=== PATIENT | female | born 1980 | race Caucasian/White ===

== ENCOUNTER 2017-07-25 18:24 | Emergency (ER) | payer SELFPAY ==
[~2017-07-25 18:24] MED LIST: ISOVUE-370 76%-LOCM 1 ML ONE
[2017-07-25] MEDS ORDERED: Meclizine HCl 25 MG TAB ONE (18:59)
[2017-07-25 19:11] LABS: #Eosinphils 0.2 thou/uL (0.0-0.7); #Lymphocytes 1.7 thou/uL (1.20-3.40); #Monocytes 0.5 thou/uL (0.11-0.59); #Neutrophils 3.7 thou/uL (1.40-6.50); %Eosinophils 3.5 % (0.0-10.0); %Lymphocytes 27.7 % (21.0-51.0); %Monocytes 7.5 % (0.0-10.0); %Neutrophils 61.3 % (42.0-75.0); Hemoglobin 13.1 g/dL (12.0-16.0); Mean Corpuscular HGB CONC 33.7 g/dL (32.0-36.0); Mean Corpuscular Hemoglobin 31.5 pg (27.0-31.0); Mean Corpuscular Volume 93.6 fl (81.0-99.0); Mean Platelet Volume 6.9 fL (7.4-10.4); Platelet Count 244 thou/uL (130-400); RBC Distribution Width 12.2 % (11.5-14.5); Red Blood Cell (RBC) Count 4.15 mill/uL (4.20-5.40); White Blood Cell (WBC) Count 6.1 thou/uL (4.8-10.8)
[2017-07-25 19:29] LABS: ALT (SGPT) 20 U/L (8-55); AST (SGOT) 14 U/L (5-34); Albumin 4.4 g/dL (3.5-5.0); Alkaline Phosphatase 85 U/L (40-150); Anion Gap 10 mmol/L (10-20); BUN (Urea Nitrogen) 11 mg/dL (7.0-18.7); Bilirubin, Total 0.5 mg/dL (0.2-1.2); CK (CPK) 63 U/L (29-168); Calc. Creatinine Clearance 0 mL/min (70-130); Calcium 9.8 mg/dL (7.8-10.44); Carbon Dioxide 27 mmol/L (22-29); Chloride 102 mmol/L (98-107); Estimated GFR-MDRD 89; Glucose 95 mg/dL (70-105); Potassium 3.8 mmol/L (3.5-5.1); Protein, Total 7.4 g/dL (6.0-8.3); Sodium 135 mmol/L (136-145)
[2017-07-25] MEDS ORDERED: Lorazepam 2 MG/ML VIAL ONE (19:48)
[2017-07-25] MEDS ORDERED: Ondansetron ODT 4 MG TAB ONE ×2 (19:49→19:50)
[2017-07-25] MEDS ORDERED: Dexamethasone 4 mg/ml Vial ONE (19:49)
--- NOTE | 2017-07-25 22:05 | CT ---
CTA NECK WITH 3D VOLUME RENDERING 07/25/17 CLINICAL HISTORY: Altered mental status with symptoms of vertigo and neck pain. Clinical concern for vertebral artery d issection. FINDINGS: Imaged aortic arch is patent as are the great vessel origins that emanate from the aortic arch. Limit ed visualization of the right subclavian artery for comment. The imaged left subclavian artery is sandip ssly patent. There is beam attenuation from patient body habitus which does limit sensitivity of the evaluation. The imaged bilateral vertebral arteries reveal no discrete evidence for focal dissection or flow limiting stenosis. Each vertebral artery is small in caliber diffusely, and there is suggestion of partial termination o f each vertebral artery within PICA with resultant small caliber distally and a small caliber basilar artery which is partially imaged on the basis of this exam. There is no obvious high grade focal carter nosis or occlusion or either common carotid artery. Bilateral cervical internal carotid arteries are patent. intracranial aspect of each carotid artery reveals no significant stenosis. Incidental note of cervical spondylosis. IMPRESSION: 1. No acute dissection of the vertebral arteries. 2. Additional details are described above. POS: BESSY
== END 2017-07-25 21:35 | disposition home or self-care (01) ==
LOC: ERS 18:24
DX: M54.2 Cervicalgia (principal); R42 Dizziness and giddiness; F90.9 Attention-deficit hyperactivity disorder, unspecified type; Z87.891 Personal history of nicotine dependence
CPT/HCPCS: 36415; 70498; 80053; 82550; 85025; 93005; 96361; 96374; 96375; J1100; J2060; Q0162

== ENCOUNTER 2022-08-28 21:02 | Inpatient (IN) | payer MEDICARE, MEDICAID ==
[2022-08-28] MEDS ORDERED: Ondansetron ODT 4 MG TAB PO PRN (23:31)
[2022-08-28] MEDS ORDERED: Ondansetron PF 4 MG/2 ML Vial IVP PRN (23:31)
[2022-08-28] MEDS ORDERED: Ketorolac Tromethamine 30 MG/ML VIAL IVP SCH (23:45)
[2022-08-28 23:51] VITALS: BMI 37.9
[2022-08-28] MEDS ORDERED: VANCOMYCIN 2 GRAM/500 ML BAG 2 GM in Premix Bag 1 BAG IVPB SCH (23:59)
[2022-08-29] MEDS: HYDROcodone/Acetaminophen 5/325 mg Tablet PO PRN ×2 (00:12→04:04)
[2022-08-29] MEDS: Piperacillin/Tazobactam 3.375 GM in Sodium Chloride 0.9% 100 ML IVPB SCH ×3 (00:13→17:32)
[2022-08-29] MEDS ORDERED: TETANUS, DIPHTHERIA TOX,ADULT (TDVAX) 0.5 ML VIAL IM ONE (00:30)
[2022-08-29] MEDS: Morphine 2 MG/ML VIAL SLOW IVP PRN ×2 (01:43→06:09)
[2022-08-29] MEDS: Ketorolac Tromethamine 30 MG/ML VIAL IVP SCH ×4 (06:09→23:16)
[2022-08-29] MEDS ORDERED: diphenhydrAMINE 50 MG/ML VIAL IVP SCH (06:30)
[2022-08-29] MEDS ORDERED: Famotidine/PF 20 mg/2ml Vial SLOW IVP SCH ×2 (06:30→12:15)
[2022-08-29 06:56] LABS: #Eosinphils 0.1 thou/uL (0.0-0.7); #Monocytes 0.8 thou/uL (0.11-0.59); %Basophils 0.3 % (0.0-1.0); %Eosinophils 1.8 % (0.0-10.0); %Lymphocytes 22.4 % (21.0-51.0); %Monocytes 9.8 % (0.0-10.0); %Neutrophils 65.6 % (42.0-75.0); Hemoglobin 10.9 g/dL (12.0-16.0); Mean Corpuscular HGB CONC 32.2 g/dL (32.0-36.0); Mean Corpuscular Hemoglobin 30.6 pg (27.0-31.0); Mean Corpuscular Volume 95.2 fl (78.0-98.0); Mean Platelet Volume 9.7 fL (7.4-10.4); Platelet Count 216 10x3/uL (130-400); RBC Distribution Width 13.2 % (11.5-14.5); Red Blood Cell (RBC) Count 3.56 mill/uL (4.20-5.40); White Blood Cell (WBC) Count 7.7 10x3/uL (4.8-10.8)
[2022-08-29 07:25] LABS: Anion Gap 10 mmol/L (10-20); BUN (Urea Nitrogen) 16 mg/dL (7.0-18.7); Calc. Creatinine Clearance 154 mL/min (70-130); Calcium 8.7 mg/dL (7.8-10.44); Carbon Dioxide 24 mmol/L (22-29); Chloride 106 mmol/L (98-107); Estimated GFR 98; Glucose 88 mg/dL (70-105); Potassium 4.1 mmol/L (3.5-5.1); Sodium 136 mmol/L (136-145)
[2022-08-29] MEDS ORDERED: Vancomycin 1 GM in Premix Bag 1 BAG IVPB SCH (09:00)
[2022-08-29] MEDS ORDERED: Fentanyl 100 MCG/2 ML VIAL SLOW IVP SCH (12:15)
[2022-08-29] MEDS: Vancomycin 1.5 GRAM/300 ML BAG 1.5 GM in Premix Bag 1 BAG IVPB SCH ×2 (13:03→23:22)
[2022-08-29] MEDS: Acetaminophen 500 MG TAB PO PRN ×2 (13:06→17:43)
[2022-08-29] MEDS ORDERED: Midazolam HCl 2 mg/2 ml Vial ONE (21:30)
[2022-08-29] MEDS ORDERED: fentaNYL PF 100 MCG/2 ML SYRINGE ONE (21:30)
[2022-08-29] MEDS ORDERED: Bacitracin Zinc Ointment 30 gm TUBE ONE (22:01)
[2022-08-29] MEDS ORDERED: Bupivacaine PF 0.5% 30 ML VIAL ONE (22:01)
[2022-08-29] MEDS ORDERED: Vancomycin 1 GM VIAL ONE (22:01)
[2022-08-30] MEDS: Piperacillin/Tazobactam 3.375 GM in Sodium Chloride 0.9% 100 ML IVPB SCH ×2 (02:04→09:26)
[2022-08-30] MEDS: Ketorolac Tromethamine 30 MG/ML VIAL IVP SCH ×2 (05:03→12:02)
[2022-08-30] MEDS ORDERED: Fentanyl 250 MCG/5 ML VIAL ONE (06:34)
[2022-08-30] MEDS ORDERED: Bupivacaine PF 0.5% 30 ML VIAL ONE (06:36)
[2022-08-30] MEDS ORDERED: Thrombin 5000 UNITS/5 ML VIAL ONE (06:36)
[2022-08-30] MEDS ORDERED: Bacitracin Zinc Ointment 30 gm TUBE ONE (06:36)
[2022-08-30] MEDS ORDERED: PHENYLEPHRINE-NS 100 MCG/ML 10 ML SYRINGE ONE (07:06)
[2022-08-30] MEDS ORDERED: Lidocaine 1% PF 5 ML VIAL ONE (07:06)
[2022-08-30] MEDS ORDERED: GLYCOPYRROLATE/PF 0.2 MG/ML VIAL ONE (07:06)
[2022-08-30] MEDS ORDERED: PROPOFOL 200 MG/20 ML VIAL ONE (07:06)
[2022-08-30] MEDS ORDERED: Ondansetron PF 4 MG/2 ML Vial ONE (07:06)
[2022-08-30] MEDS ORDERED: Dexamethasone 20 MG/5 ML VIAL ONE (07:06)
[2022-08-30] MEDS ORDERED: Ketorolac Tromethamine 30 MG/ML VIAL ONE (07:06)
[2022-08-30] MEDS ORDERED: Vancomycin 1 GM VIAL ONE (07:25)
[2022-08-30] MEDS ORDERED: Ondansetron HCl/PF 4 MG/2 ML Vial IVP PRN (08:29)
[2022-08-30] MEDS ORDERED: Promethazine HCl 25 MG/ML VIAL IM PRN (08:29)
[2022-08-30] MEDS: HYDROcodone/Acetaminophen 5/325 mg Tablet PO PRN (09:55)
[2022-08-30 11:18] LABS: #Monocytes 0.2 thou/uL (0.11-0.59); #Neutrophils 5.2 thou/uL (1.40-6.50); %Basophils 0.2 % (0.0-1.0); %Eosinophils 0.6 % (0.0-10.0); %Lymphocytes 12.2 % (21.0-51.0); %Monocytes 3.6 % (0.0-10.0); %Neutrophils 83.1 % (42.0-75.0); Hemoglobin 10.8 g/dL (12.0-16.0); Mean Corpuscular HGB CONC 32.4 g/dL (32.0-36.0); Mean Corpuscular Hemoglobin 30.4 pg (27.0-31.0); Mean Corpuscular Volume 93.8 fl (78.0-98.0); Mean Platelet Volume 9.4 fL (7.4-10.4); Platelet Count 217 10x3/uL (130-400); RBC Distribution Width 13.2 % (11.5-14.5); Red Blood Cell (RBC) Count 3.55 mill/uL (4.20-5.40); White Blood Cell (WBC) Count 6.3 10x3/uL (4.8-10.8)
[2022-08-30 11:41] LABS: Vancomycin, Trough 13.3 ug/mL
[2022-08-30 11:43] LABS: Anion Gap 10 mmol/L (10-20); BUN (Urea Nitrogen) 11 mg/dL (7.0-18.7); Calc. Creatinine Clearance 167 mL/min (70-130); Calcium 9.5 mg/dL (7.8-10.44); Carbon Dioxide 25 mmol/L (22-29); Chloride 104 mmol/L (98-107); Estimated GFR 108; Glucose 118 mg/dL (70-105); Potassium 4.3 mmol/L (3.5-5.1); Sodium 135 mmol/L (136-145)
[2022-08-30] MEDS: Vancomycin 1.5 GRAM/300 ML BAG 1.5 GM in Premix Bag 1 BAG IVPB SCH (12:51)
[2022-08-30] MEDS ORDERED: Non-Formulary Item 1 EACH (Desvenlafaxine [Desvenlafaxine Er] 50 MG Tab.Er.24h) PO SCH (13:30)
[2022-08-30] MEDS ORDERED: buPROPion HCl 100 MG TAB PO SCH ×2 (13:30→13:45)
[2022-08-30] MEDS ORDERED: Venlafaxine HCl XR 75 MG CAP PO SCH (13:45)
[2022-08-30 16:30] VITALS: BP 127/78; TEMP 98.5
[2022-08-30] MEDS ORDERED: metFORMIN 500 MG TAB PO SCH (21:00)
[2022-08-31] MEDS ORDERED: buPROPion HCl 100 MG TAB PO SCH (09:00)
[2022-08-31] MEDS ORDERED: Venlafaxine HCl XR 75 MG CAP PO SCH (09:00)
== END 2022-08-30 16:45 | disposition home or self-care (01) | DRG 42 ==
LOC: T4-A 22:25
PROVIDERS: ADMIT Internal Medicine; ATTEND Internal Medicine
PROC: 01Q60ZZ Repair Radial Nerve, Open Approach (ICD-10-PCS; principal; 2022-08-30)
PROC: 0LB70ZZ Excision of Right Hand Tendon, Open Approach (ICD-10-PCS; 2022-08-30)
DX: S64.21XA Injury of radial nerve at wrist and hand level of right arm, initial encounter (principal); M65.841 Other synovitis and tenosynovitis, right hand; R73.03 Prediabetes; S61.214A Laceration without foreign body of right ring finger without damage to nail, initial encounter; X58.XXXA Exposure to other specified factors, initial encounter; L50.9 Urticaria, unspecified; Z88.5 Allergy status to narcotic agent; Z79.899 Other long term (current) drug therapy
CPT/HCPCS: 12002; 36415; 80048; 80053; 80202; 83605; 85025; 87040; 87070; 87205; 90714; 96365; 96375; J1100; J1200; J1885; J2250; J2270; J2272; J2405; J2543; J2704; J3010; J3370; J3490; S0020; S0028

== ENCOUNTER 2024-11-26 13:08 | Outpatient (CLI) | payer MEDICARE | END 2024-11-26 13:09 | disposition home or self-care (01) | LOC: SCSMRI 13:08 | PROVIDERS: ATTEND Student in an Organized Health Care Education/Training Program | DX: S46.011A Strain of muscle(s) and tendon(s) of the rotator cuff of right shoulder, initial encounter (principal); M75.121 Complete rotator cuff tear or rupture of right shoulder, not specified as traumatic; M25.411 Effusion, right shoulder; M19.011 Primary osteoarthritis, right shoulder ==

== ENCOUNTER 2024-12-04 09:32 | Outpatient (CLI) | payer MEDICARE ==
[2024-12-04 10:31] LABS: BHCG - Serum Negative (NEGATIVE); Pregs Control Background? CLEAR/WHITE (CLR/WHITE); Pregs Control Bar Appear? YES (CONTROL BAR)
[2024-12-04 10:46] LABS: INR-International Normal Ratio 1.0; Prothrombin Time 13.5 sec (12.0-14.7)
== END 2024-12-04 09:33 | disposition home or self-care (01) ==
LOC: LABBT 09:32
PROVIDERS: ATTEND Student in an Organized Health Care Education/Training Program
DX: Z01.818 Encounter for other preprocedural examination (principal); S46.011A Strain of muscle(s) and tendon(s) of the rotator cuff of right shoulder, initial encounter; M25.511 Pain in right shoulder
CPT/HCPCS: 71046; 84703; 85610; 86850; 86900; 86901

== ENCOUNTER 2024-12-11 05:56 | Day surgery (SDC) | payer MEDICARE ==
[2024-12-04 09:51] VITALS: BMI 37.8
[2024-12-11] MEDS ORDERED: Tranexamic Acid 1,000 MG/10 ML VIAL ONE (06:17)
[2024-12-11] MEDS ORDERED: Acetaminophen 500 MG TAB ONE (06:17)
[2024-12-11] MEDS ORDERED: Bupivacaine 0.25% HCL 30 ML VIAL ONE (06:28)
[2024-12-11] MEDS ORDERED: Ropivacaine 0.5% HCl/PF (150 MG/30 ML VIAL) ONE (06:55)
[2024-12-11] MEDS ORDERED: Ropivacaine 0.2% HCl/PF 20 ML ONE (06:55)
[2024-12-11] MEDS ORDERED: CEFAZOLIN 2 GM VIAL ONE (07:04)
[2024-12-11] MEDS ORDERED: fentaNYL PF 100 MCG/2 ML SYRINGE ONE (07:31)
[2024-12-11] MEDS ORDERED: PROPOFOL 40 ML ONE (07:31)
[2024-12-11] MEDS ORDERED: Rocuronium Bromide 10 MG/ML (10ML VIAL) ONE (07:38)
[2024-12-11] MEDS ORDERED: Ropivacaine 0.2% 550 ML 550 ML NERVE BLCK SCH (08:00)
[2024-12-11] MEDS ORDERED: Ondansetron PF 4 MG/2 ML Vial IVP PRN (08:00)
[2024-12-11] MEDS ORDERED: SUGAMMADEX SODIUM 200 MG/2 ML VIAL ONE ×2 (10:20→12:33)
[2024-12-11] MEDS ORDERED: Ketorolac Tromethamine 30 MG (1 mL) VIAL ONE (10:20)
[2024-12-11] MEDS ORDERED: Ondansetron PF 4 MG/2 ML Vial ONE (10:20)
[2024-12-11] MEDS ORDERED: Ketorolac Tromethamine 30 MG (1 mL) VIAL IVP SCH (12:00)
== END 2024-12-11 15:30 | disposition home or self-care (01) ==
LOC: SDC 05:56
PROVIDERS: ATTEND Student in an Organized Health Care Education/Training Program
PROC: 0LM10ZZ Reattachment of Right Shoulder Tendon, Open Approach (ICD-10-PCS; principal; 2024-12-11)
PROC: 0LS30ZZ Reposition Right Upper Arm Tendon, Open Approach (ICD-10-PCS; 2024-12-11)
PROC: 3E0T3BZ Introduction of Anesthetic Agent into Peripheral Nerves and Plexi, Percutaneous Approach (ICD-10-PCS; 2024-12-11)
DX: S46.011A Strain of muscle(s) and tendon(s) of the rotator cuff of right shoulder, initial encounter (principal); G43.909 Migraine, unspecified, not intractable, without status migrainosus; F32.A Depression, unspecified; Z88.5 Allergy status to narcotic agent; Z87.891 Personal history of nicotine dependence; Z79.899 Other long term (current) drug therapy; W19.XXXA Unspecified fall, initial encounter
CPT/HCPCS: 23420; 23430; 64416; A4306; C1713 ×3; J1885; J2250; J2405; J2704; J2795 ×3; J3010; Q4125; J0169; J0665